=== PATIENT | female | born 2000 | race Caucasian/White ===

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

== ENCOUNTER 2025-05-06 18:01 | Emergency (ER) | payer OTHER, SELFPAY ==
[2025-05-06 18:22] LABS: Glucose, Urine (Dipstick) Negative (Negative); Leukocyte Large (Negative); Protein, Urine (Dipstick) Negative (Neg-Trace); Specific Gravity, Urine Less/Equal 1.005 (1.005-1.030)
[2025-05-06 18:36] LABS: Bacteria/HPF 2+ HPF (None Seen); CAUTI Indications for Culture Pelvic or flank pain; RBC/HPF 0-3 HPF (0-3)
[2025-05-06 18:37] LABS: Urine Culture Reflex Yes Yes
[2025-05-06 18:50] LABS: Pregnancy Test - Urine (BHCG) Negative (Negative); Pregu Control Background? CLEAR/WHITE (CLR/WHITE); Pregu Control Bar Appear? YES (CONTROL BAR)
[2025-05-06] MEDS ORDERED: Sulfameth/Trimethoprim DS 800-160mg TAB ONE (19:18)
== END 2025-05-06 19:21 | disposition home or self-care (01) ==
LOC: NAV ERS 18:01
DX: N30.00 Acute cystitis without hematuria (principal); F17.290 Nicotine dependence, other tobacco product, uncomplicated
CPT/HCPCS: 81001; 81025; 87077; 87086; 99283

== ENCOUNTER 2025-06-21 00:43 | Emergency (ER) | payer OTHER, SELFPAY ==
[2025-06-21] MEDS ORDERED: Cyclobenzaprine 10 MG TAB ONE (01:28)
== END 2025-06-21 01:40 | disposition home or self-care (01) ==
LOC: NAV ERS 00:43
DX: S13.4XXA Sprain of ligaments of cervical spine, initial encounter (principal); S70.12XA Contusion of left thigh, initial encounter; M54.50 Low back pain, unspecified; F17.290 Nicotine dependence, other tobacco product, uncomplicated; V43.52XA Car driver injured in collision with other type car in traffic accident, initial encounter
CPT/HCPCS: 99283